=== PATIENT | male | born 1965 | race Caucasian/White ===

== ENCOUNTER 2019-05-26 14:52 | Outpatient (CLI) | payer OTHER, SELFPAY ==
--- NOTE | ~2019-05-26 | CT_ITS ---
EXAMINATION: CT soft tissue neck wo con DATE: 05/26/2019 15:28 INDICATION: Localized swelling, mass and lump of the neck TECHNIQUE: Computed tomography (CT) of the neck was performed without intravenous contrast. The dose- length product (DLP) was 568.00 mGy-cm. Automated exposure control and iterative reconstruction techn ique were employed. COMPARISON: None FINDINGS: No suspicious mass is identified. There are no pathologically enlarged lymph nodes. There i s mild cervical spondylosis. The visualized orbits are normal. The facial bones are unremarkable. IMPRESSION: 1. No CT correlate for the patient's symptoms. Reviewed, dictated and finalized at location B.
== END 2019-05-26 14:53 | disposition home or self-care (01) ==
PROVIDERS: PCP Internal Medicine; Visit Provider Nurse Practitioner
DX: R22.1 Localized swelling, mass and lump, neck (principal)
CPT/HCPCS: 70490

== ENCOUNTER 2020-04-04 08:48 | Outpatient (CLI) | payer OTHER, SELFPAY ==
--- NOTE | 2020-04-26 09:53 | WPDHOMESLEEP ---
Sleep Study - Home Unattended Date of Study: 04/04/20 Ordering Provider: Tigre Dickerson MD Interpreting Physician: Cate Judge MD Home Sleep Study Type: Apnea Link Air Height: 1.75 m Weight: 97.069 kg Body Mass Index: 31.6 Neck Circumference (inches): 15.5 [place]: 0 Reason for Sleep Study Requested by his doctor due to [id number] hypertension and diastolic heart failure Sleep History Tej Gray done away is a 54-year-old man who has a history of hypertension which has been difficult to control. He also has diastolic congestive heart failure and has had pulmonary edema. He frequently snores, occasionally loud enough that others complain about it. He occasionally awakens at night with heartburn, belching or coughing. He occasionally awakens from sleep feeling short of breath. He does not have trouble sleep with a cold, does not gasp for breath at night. Occasionally has breathing problems at night it reported to him by others. He does not sweat excessively at night or notices his heart pounding or beating irregularly at night. He does not fall asleep during the day, involuntarily or while driving. He does not have loss of muscle tone was strong emotion. He does not have daytime difficulties due to excessive sleepiness. He does not feel paralyzed on waking or falling asleep and does not feel afraid to go to sleep. 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 He occasionally remembers his dreams and occasionally has racing thoughts. He rarely feels sad or depressed. Never feels anxious. He does not have muscular tension, does not notice part of his body jerking. He occasionally kicks at night. He does not have crawling and aching feelings in his legs. He denies any kind of leg pain at night. He does not have morning jaw pain, does not grind his teeth at night, does not have pain during the day, night, does not wake up feeling stiff. He occasionally wakes up with sore muscles. He rarely wakes up with spine pain. Normal bedtime is 9-10 p.m. falling asleep within 45 minutes to an hour waking 1 or 2 times at night to urinate, check his phone for a few minutes. He is able to return to sleep in 10-15 minutes. He wakes in the morning between 630 and 7:00 a.m.. On weekends he may stay awake until 11:00 p.m. and wakes between 8 and 9:00 a.m.. He does not usually take naps. A short nap may be refreshing. He most always wakes up feeling refreshed. He only rarely has daytime problems due to excessive sleepiness. Habits: Quit tobacco 2 years ago. Caffeine 2-3 servings a day. Alcohol 2-3 servings of wine per week. No recreational drugs. FORMERLY [facility], [facility] Past Medical History Medical History Atherosclerotic renal artery stenosis, bilateral Diastolic dysfunction with heart failure HTN (hypertension) Pulmonary embolism Family History Family History Mother Diabetes mellitus Hypertension Family history of coronary artery disease Family history of diabetes mellitus in first degree relative Father Family history of malignant neoplasm of brain Social History Social History Smoking status: Former smoker Smoking end date: 03/08/17 Alcohol intake: current Medications Home Medications Medication Instructions Recorded Confirmed Type aspirin 325 mg tablet 325 mg PO DAILY 05/18/19 01/22/20 History folic acid 1 mg tablet 2 mg PO DAILY tablet 05/18/19 01/22/20 History amlodipine 5 mg tablet 5 mg PO DAILY #90 tablet 01/22/20 01/22/20 Rx atorvastatin 40 mg tablet 40 mg PO DAILY tablet 01/22/20 01/22/20 History carvedilol 25 mg tablet 25 mg PO BID tablet 01/22/20 01/22/20 History clonidine HCl 0.1 mg tablet 0.1 mg PO Q8H tablet 01/22/20 01/22/20 History furosemide 80 mg tablet 80 mg PO DAILY tablet 01/22/20 01/22/20 History spironola
[2020-04-26 10:08] VITALS: BMI 31.6
== END 2020-04-04 08:49 | disposition home or self-care (01) ==
LOC: ANHCSM 08:49
PROVIDERS: PCP Internal Medicine; Visit Provider Internal Medicine
DX: G47.33 Obstructive sleep apnea (adult) (pediatric) (principal); E66.9 Obesity, unspecified; Z68.31 Body mass index [BMI] 31.0-31.9, adult
CPT/HCPCS: 95806

== ENCOUNTER → 2020-05-04 02:53 | Outpatient (CLI) | payer OTHER, SELFPAY ==
[2020-05-04 19:42] LABS: SARS-CoV-2 RNA PCR Negative
== END ==
PROVIDERS: PCP Internal Medicine; Visit Provider Internal Medicine Critical Care Medicine
DX: R68.89 Other general symptoms and signs (principal); Z20.822 Contact with and (suspected) exposure to COVID-19
CPT/HCPCS: C9803; U0003; U0005

== ENCOUNTER 2020-05-07 08:59 | Outpatient (CLI) | payer OTHER, SELFPAY ==
--- NOTE | 2020-05-26 11:25 | WPDSLEEPSTUD ---
Sleep Study Ordering Provider: Rachel Busby NP Interpreting Physician: Cate Judge MD Sleep Study Type: CPAP Titration Height: 1.75 m Weight: 99.337 kg Body Mass Index: 32.3 Neck Circumference (inches): 17.5 [place]: 2 Reason for Sleep Study Home sleep test 04/04/2020 with moderate sleep apnea, 90% events were central; he presents for a CPAP titration Sleep History Tej Gray is a 54 year old male with a history of central sleep apnea on an ApneaLink Apr 04, 2020. He is here for CPAP titraiton. He has hypertension which has been difficult to control. He also has diastolic congestive heart failure and a history of pulmonary edema. He frequently snores, occasionally loud enough that others complain about it. He occasionally awakens at night with heartburn, belching or coughing. He occasionally awakens from sleep feeling short of breath. He does not have trouble sleep with a cold, does not gasp for breath at night. Occasionally has breathing problems at night it reported to him by others. He does not sweat excessively at night or notices his heart pounding or beating irregularly at night. He does not fall asleep during the day, involuntarily or while driving. He does not have loss of muscle tone was strong emotion. He does not have daytime difficulties due to excessive sleepiness. He does not feel paralyzed on waking or falling asleep and does not feel afraid to go to sleep. 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 He occasionally remembers his dreams and occasionally has racing thoughts. He rarely feels sad or depressed. Never feels anxious. He does not have muscular tension, does not notice part of his body jerking. He occasionally kicks at night. He does not have crawling and aching feelings in his legs. He denies any kind of leg pain at night. He does not have morning jaw pain, does not grind his teeth at night, does not have pain during the day, night, does not wake up feeling stiff. He occasionally wakes up with sore muscles. He rarely wakes up with spine pain. Normal bedtime is 9-10 p.m. falling asleep within 45 minutes to an hour waking 1 or 2 times at night to urinate, check his phone for a few minutes. He is able to return to sleep in 10-15 minutes. He wakes in the morning between 630 and 7:00 a.m.. On weekends he may stay awake until 11:00 p.m. and wakes between 8 and 9:00 a.m.. He does not usually take naps. A short nap may be refreshing. He most always wakes up feeling refreshed. He only rarely has daytime problems due to excessive sleepiness. Habits: Quit tobacco 2 years ago. Caffeine 2-3 servings a day. Alcohol 2-3 servings of wine per week. No recreational drugs. [facility] Past Medical History Medical History Atherosclerotic renal artery stenosis, bilateral Diastolic dysfunction with heart failure HTN (hypertension) Pulmonary embolism Family History Family History Mother Diabetes mellitus Hypertension Family history of coronary artery disease Family history of diabetes mellitus in first degree relative Father Family history of malignant neoplasm of brain Social History Social History Smoking status: Former smoker Smoking end date: 03/08/17 Alcohol intake: current Medications Home Medications Medication Instructions Recorded Confirmed Type aspirin 325 mg tablet 325 mg PO DAILY 05/18/19 05/21/20 History atorvastatin 40 mg tablet 40 mg PO DAILY tablet 01/22/20 05/21/20 History carvedilol 25 mg tablet 25 mg PO BID tablet 01/22/20 05/21/20 History folic acid 1 mg tablet 800 mg PO DAILY tablet 05/21/20 05/21/20 History furosemide 80 mg tablet 40 mg PO .3Xweek tablet 05/21/20 05/21/20 History sacubitril 49 mg-valsartan 51 mg 1 tablet PO BID 05/21/20 05/21/20 History tablet s
[2020-05-27 09:59] VITALS: BMI 32.3
== END 2020-05-07 09:00 | disposition home or self-care (01) ==
LOC: ANHCSM 08:59
PROVIDERS: PCP Internal Medicine; Visit Provider Nurse Practitioner
DX: G47.33 Obstructive sleep apnea (adult) (pediatric) (principal)
CPT/HCPCS: 95811

== ENCOUNTER 2023-11-17 07:55 | Outpatient (CLI) | payer OTHER, SELFPAY ==
--- NOTE | 2023-11-17 08:07 | ECG_ITS ---
Test Date: 2023-11-17 08:46:28 Measurements Intervals [place] Rate: P: PA: QRS: QRSD: T: QT: QTc: Interpretive Statements SINUS RHYTHM RIGHT BUNDLE BRANCH BLOCK ABNORMAL ECG Electronically Signed On 11-17-2023 08:54:57 CDT by Jhonathan Motta D.O.
== END 2023-11-17 07:56 | disposition home or self-care (01) ==
LOC: ANHCARD 07:58
PROVIDERS: PCP Internal Medicine; Visit Provider Podiatrist Foot & Ankle Surgery
DX: Z01.818 Encounter for other preprocedural examination (principal); I45.10 Unspecified right bundle-branch block
CPT/HCPCS: 93005